=== PATIENT | male | born 1955 | race Caucasian/White ===

== ENCOUNTER 2019-04-06 16:37 | Outpatient (CLI) | payer BC ==
[~2019-04-06] VITALS: Ht 175.3 cm; Wt 66.6 kg
[2019-04-06] MEDS ORDERED: PRINZIDE 12.5 M1 TAB PO (16:53)
[2019-04-06] MEDS ORDERED: UROXATRAL10 M1 PO (16:54)
[2019-04-06] MEDS ORDERED: FLEXERIL 1010 MG/TAB PO (16:55)
[2019-04-06] MEDS ORDERED: CIALIS5 MG PO (16:55)
[2019-04-06] MEDS ORDERED: VOLTAREN 75 DR75 MG PO (16:56)
[2019-04-06] MEDS ORDERED: ULTRAM 50MG TAB50 MG PO (16:57)
[2019-04-06] MEDS ORDERED: VITAMIN D31000 I1 PO (16:59)
[2019-04-06] MEDS ORDERED: OSCAL 500 TAB500 MG PO (17:00)
[2019-04-06] MEDS ORDERED: PRESERVISIONLUT PO (17:01)
[2019-04-06 17:02] VITALS: BP 130/72; PULSE 79; TEMP 97.8
== END 2019-04-06 17:02 | disposition home or self-care (01) ==
LOC: EUO 16:37
DX: M81.0 Age-related osteoporosis without current pathological fracture (principal)
CPT/HCPCS: J0897

== ENCOUNTER 2020-04-20 11:15 | Emergency (ER) | payer BC ==
[~2020-04-20] VITALS: Ht 170.2 cm; Wt 63.6 kg
[~2020-04-20 11:15] MED LIST: CIALIS5 MG PO; FLEXERIL 1010 MG/TAB PO; OSCAL 500 TAB500 MG PO; PRESERVISIONLUT PO; PRINZIDE 12.5 M1 TAB PO; ULTRAM 50MG TAB50 MG PO; UROXATRAL10 M1 PO; VITAMIN D31000 I1 PO; VOLTAREN 75 DR75 MG PO
[2020-04-20 11:26] VITALS: BP 148/77; TEMP 97.5
[2020-04-20 11:43] LABS: COLLECTION METHOD CLEAN CATCH
[2020-04-20 11:50] LABS: BASO # 0.1 (0.0-0.2); BASO % 1.1 % (0.0-2.0); EOS # 0.3 (0.0-0.7); EOS % 2.9 % (0-4.0); GRAN # 6.9 (1.4-6.5); GRAN % 72.5 % (42.2-75.2); HEMATOCRIT 40.3 % (42.0-52.0); HEMOGLOBIN 13.8 g/dl (13.5-18.0); LYMPH # 1.5 (1.2-3.4); LYMPH % 15.3 % (20.0-51.0); MEAN CELL VOLUME 92 fl (80.0-100.0); MEAN CORPUSCULAR HEMOGLOBIN 31 pg (27.0-31.0); MEAN CORPUSCULAR HGB CONC 34 g/dl (33.0-37.0); MEAN PLATELET VOLUME 8.6 fl (7.4-10.4); MONO # 0.8 (0.1-0.6); MONO % 7.9 % (1.7-9.3); PLATELET COUNT 323 K/mm3 (130-400); RED BLOOD COUNT 4.39 M/mm3 (4.20-5.60); REDCELL DISTRIBUTION WIDTH-CV 13.1 % (11.5-14.5)
[2020-04-20 11:57] LABS: MUCOUS Present /lpf; PH 6 (5-8); SQUAMOUS EPITHELIAL None Seen /hpf; URINE APPEARANCE Clear; URINE BACTERIA None Seen /hpf; URINE BILIRUBIN Negative (NEGATIVE); URINE BLOOD 1+ (NEGATIVE); URINE COLOR Yellow; URINE GLUCOSE Negative (NEGATIVE); URINE KETONE Negative (NEGATIVE); URINE LEUKOCYTE ESTERASE Negative (NEGATIVE); URINE NITRATE Negative (NEGATIVE); URINE PROTEIN(semi-quant) Negative (NEGATIVE); URINE UROBILINOGEN Negative (NEGATIVE)
[2020-04-20 12:06] LABS: ALBUMIN 4.6 gm/dL (3.5-5.0); BILIRUBIN,TOTAL 1.4 mg/dL (0.0-1.0); CALCIUM 9.4 mg/dL (8.4-10.2); CREATININE, serum 1.26 (0.66-1.25); POTASSIUM 3.7 mmol/L (3.4-5.0); TOTAL PROTEIN 7.3 gm/dL (6.4-8.2)
[2020-04-20] MEDS ORDERED: NORCO 325 MG-51 TAB PO (13:11)
[2020-04-20 13:24] VITALS: PULSE 80
== END 2020-04-20 13:23 | disposition home or self-care (01) ==
LOC: COL.ER 11:15
PROVIDERS: Physician Assistant
DX: N20.1 Calculus of ureter (principal); N23 Unspecified renal colic; R91.1 Solitary pulmonary nodule; I10 Essential (primary) hypertension; N40.1 Benign prostatic hyperplasia with lower urinary tract symptoms; G89.29 Other chronic pain
CPT/HCPCS: J2270; J2405; J7030; Q9967

== ENCOUNTER 2020-04-25 16:38 | Outpatient (CLI) | payer BC ==
[~2020-04-25] VITALS: Ht 175.3 cm; Wt 67.4 kg
[~2020-04-25 16:38] MED LIST changes: +NORCO 325 MG-51 TAB PO
[2020-04-25 16:57] VITALS: BP 135/87; PULSE 79; TEMP 98.3
[2020-04-25] MEDS ORDERED: PROLIA60 MG/ML SQ (17:06)
== END 2020-04-25 17:18 | disposition home or self-care (01) ==
LOC: EUO 16:38
DX: M81.0 Age-related osteoporosis without current pathological fracture (principal)
CPT/HCPCS: J0897

== ENCOUNTER → 2020-05-05 | Outpatient (CLI) | payer BC ==
[~2020-05-05] MED LIST changes: +PROLIA60 MG/ML SQ
== END ==
LOC: COL.RAD 05-01 08:30
DX: N20.2 Calculus of kidney with calculus of ureter (principal); M51.36 Other intervertebral disc degeneration, lumbar region; M41.86 Other forms of scoliosis, lumbar region; M47.817 Spondylosis without myelopathy or radiculopathy, lumbosacral region; R91.8 Other nonspecific abnormal finding of lung field
CPT/HCPCS: Q9967

== ENCOUNTER 2020-10-28 12:57 | Outpatient (CLI) | payer BC ==
[~2020-10-28] VITALS: Ht 175.3 cm; Wt 67.0 kg
[2020-10-28 13:02] VITALS: BP 125/65; PULSE 74; TEMP 97.4
== END 2020-10-28 17:27 | disposition home or self-care (01) ==
LOC: EUO 12:57
DX: M81.0 Age-related osteoporosis without current pathological fracture (principal)
CPT/HCPCS: J0897

== ENCOUNTER 2021-05-26 13:41 | Outpatient (CLI) | payer BC ==
[~2021-05-26] VITALS: Ht 175.3 cm; Wt 66.8 kg
[2021-05-26 14:18] VITALS: BP 138/80; PULSE 68; TEMP 98.1
== END 2021-05-26 14:19 ==
LOC: EUO 13:41
DX: M81.0 Age-related osteoporosis without current pathological fracture (principal)
CPT/HCPCS: J0897

== ENCOUNTER 2022-05-07 13:15 | Outpatient (CLI) | payer BC, MEDICARE ==
[~2022-05-07] VITALS: Ht 175.3 cm; Wt 67.0 kg
[2022-05-07 13:56] VITALS: BP 134/84; PULSE 74; TEMP 98.1
== END 2022-05-07 13:57 | disposition home or self-care (01) ==
LOC: EUO 13:15
DX: M81.0 Age-related osteoporosis without current pathological fracture (principal)
CPT/HCPCS: J0897

== ENCOUNTER 2022-11-11 13:05 | Outpatient (CLI) | payer MEDICARE ==
[~2022-11-11] VITALS: Ht 175.3 cm; Wt 67.4 kg
[2022-11-11 13:35] VITALS: BP 117/71; PULSE 79; TEMP 98.3
--- NOTE | 2022-11-11 13:50 | NUR ---
Pt tolerated injection without issue. He exited dept with steady gait.
== END 2022-11-11 13:50 | disposition home or self-care (01) ==
LOC: EUO 13:05
DX: M81.0 Age-related osteoporosis without current pathological fracture (principal)
CPT/HCPCS: J0897

== ENCOUNTER → 2022-12-21 | Outpatient (CLI) | payer MEDICARE ==
[2005-09-17 09:00] VITALS: TEMP 98.5
== END ==
LOC: COL.RAD 14:19
DX: R91.8 Other nonspecific abnormal finding of lung field (principal)

== ENCOUNTER 2023-11-15 12:52 | Outpatient (CLI) | payer MEDICARE ==
[~2023-11-15] VITALS: Ht 175.3 cm; Wt 62.7 kg
[~2023-11-15 12:52] MED LIST changes: +LIPITOR 40MG TA40 MG PO
[2023-11-15] MEDS ORDERED: Denosumab 60 MG/ML SYRINGE SQ ONE (13:00)
[2023-11-15 13:10] VITALS: BP 135/80; PULSE 94; TEMP 97.5
[2023-11-15] MEDS ORDERED: ZANAFLEX CAPSULE4 MG PO (13:12)
== END 2023-11-15 14:56 ==
LOC: EUO 12:52
DX: M81.0 Age-related osteoporosis without current pathological fracture (principal)
CPT/HCPCS: J0897

== ENCOUNTER 2024-05-18 12:53 | Outpatient (CLI) | payer MEDICARE ==
[~2024-05-18 12:53] MED LIST changes: +ZANAFLEX CAPSULE4 MG PO
[2024-05-18 13:05] VITALS: BP 118/66; PULSE 68; TEMP 98
[2024-05-18] MEDS ORDERED: Denosumab 60 MG/ML SYRINGE SQ ONE (13:15)
--- NOTE | 2024-05-18 13:30 | NUR ---
Pt tolerated prolia without issue. He exits dept with steady gait. Free of complaints at discharge.
== END 2024-05-18 13:30 | disposition home or self-care (01) ==
LOC: EUO 12:53
DX: M81.0 Age-related osteoporosis without current pathological fracture (principal)
CPT/HCPCS: J0897